=== PATIENT | female | born 2000 | race Two or more races ===

== ENCOUNTER 2023-04-05 16:32 | Emergency (ER) | payer BC, OTHER ==
[2023-04-05] MEDS ORDERED: Sodium Chloride 0.9% 10 ML Syringe FLUSH PRN (16:40)
[2023-04-05] MEDS ORDERED: Sodium Chloride 0.9% 1,000 ML IV SCH (16:45)
[2023-04-05 16:51] LABS: BASOPHILS PERCENT AUTO 0.4 % (0.0-1.0); EOSINOPHILS ABSOLUTE AUTO 0.4 K/mm3 (0.0-0.4); EOSINOPHILS PERCENT AUTO 4.7 % (0.0-6.0); HEMATOCRIT 37.8 % (37.0-47.0); IMMATURE GRAN ABSOLUTE AUTO 0.02 K/mm3 (0.00-0.05); IMMATURE GRAN PERCENT AUTO 0.2 % (0.0-0.4); LYMPHOCYTES PERCENT AUTO 35.1 % (24.0-44.0); MEAN CORPUSCULAR HEMOGLOBIN 31.3 pg (28.0-32.0); MEAN CORPUSCULAR HGB CONC 34.4 g/dl (32.0-36.0); MEAN CORPUSCULAR VOLUME 90.9 fl (83.0-99.0); MEAN PLATELET VOLUME 9.8 fl (9.4-12.3); MONOCYTES ABSOLUTE AUTO 0.6 K/mm3 (0.0-0.8); MONOCYTES PERCENT AUTO 6.6 % (0.0-8.0); NEUTROPHILS ABSOLUTE AUTO 4.5 K/mm3 (1.8-7.7); PLATELET COUNT,PLT 301 K/mm3 (150-400); RED BLOOD CELL COUNT 4.16 M/mm3 (4.10-5.30); WHITE BLOOD CELL COUNT,WBC 8.44 K/mm3 (3.9-11.3)
[2023-04-05] MEDS ORDERED: HYDROmorphone 0.5 MG/0.5 ML Syringe IVPUSH ONE ×2 (16:51→18:42)
[2023-04-05 17:14] LABS: A/G RATIO 1.1 (1-2); ANION GAP 15.6 (5-15); BILIRUBIN TOTAL 0.3 mg/dL (0.2-1.0); BUN/CREATININE RATIO 17.5 (14-18); CALCIUM 8.9 mg/dL (8.5-10.1); CREATININE 0.8 mg/dL (0.55-1.02); EST CRCL DRUG DOSING (CG) 80.59 mL/min; POTASSIUM,K 3.6 mEq/L (3.5-5.1); PROTEIN TOTAL,TP 7.8 g/dl (6.4-8.2)
== END 2023-04-05 19:00 ==
LOC: EDUNIT# → EDBD → JD.ED 16:32
DX: S52.021A Displaced fracture of olecranon process without intraarticular extension of right ulna, initial encounter for closed fracture (principal); S06.6X0A Traumatic subarachnoid hemorrhage without loss of consciousness, initial encounter; S00.03XA Contusion of scalp, initial encounter; V13.9XXA Unspecified pedal cyclist injured in collision with car, pick-up truck or van in traffic accident, initial encounter
CPT/HCPCS: 29105; 36415; 70450; 71045; 72125; 73080; 80053; 80307; 83690; 84703; 85025; 96374; 96376; 99285; J1170; J3490; J7030

== ENCOUNTER 2024-09-10 07:29 | Inpatient (IN) | payer SELFPAY ==
[2024-09-10] MEDS ORDERED: Lidocaine 1% 50 ML MDV INJECT PRN (09:07)
[2024-09-10] MEDS ORDERED: Nalbuphine 10 MG/1 ML Vial IVPUSH PRN (09:07)
[2024-09-10] MEDS ORDERED: Ondansetron 4 MG/2 ML SDV IVPUSH PRN (09:07)
[2024-09-10] MEDS ORDERED: Oxytocin/0.9 % Sodium Chloride 30 UNIT/500 ML BAG IV SCH (09:15)
[2024-09-10 09:27] LABS: BASOPHILS PERCENT AUTO 0.3 % (0.0-1.0); EOSINOPHILS ABSOLUTE AUTO 0.1 K/mm3 (0.0-0.4); EOSINOPHILS PERCENT AUTO 1.4 % (0.0-6.0); HEMATOCRIT 32.5 % (37.0-47.0); HEMOGLOBIN 10.6 gm/dl (12.0-16.0); IMMATURE GRAN ABSOLUTE AUTO 0.02 K/mm3 (0.00-0.05); IMMATURE GRAN PERCENT AUTO 0.3 % (0.0-0.4); LYMPHOCYTES ABSOLUTE AUTO 1.7 K/mm3 (1.0-4.8); LYMPHOCYTES PERCENT AUTO 21.2 % (24.0-44.0); MEAN CORPUSCULAR HEMOGLOBIN 29.3 pg (28.0-32.0); MEAN CORPUSCULAR HGB CONC 32.6 g/dl (32.0-36.0); MEAN CORPUSCULAR VOLUME 89.8 fl (83.0-99.0); MEAN PLATELET VOLUME 9.4 fl (9.4-12.3); MONOCYTES ABSOLUTE AUTO 0.5 K/mm3 (0.0-0.8); MONOCYTES PERCENT AUTO 6.7 % (0.0-8.0); NEUTROPHILS ABSOLUTE AUTO 5.6 K/mm3 (1.8-7.7); NEUTROPHILS PERCENT AUTO 70.1 % (41.0-71.0); PLATELET COUNT,PLT 275 K/mm3 (150-400); RED BLOOD CELL COUNT 3.62 M/mm3 (4.10-5.30); WHITE BLOOD CELL COUNT,WBC 7.96 K/mm3 (3.9-11.3)
[2024-09-10] MEDS ORDERED: diphenhydrAMINE 50 MG/ML SDV IVPUSH PRN (09:47)
[2024-09-10] MEDS ORDERED: ePHEDrine 50 MG/ML SDV IVPUSH PRN (09:47)
[2024-09-10] MEDS: Lactated Ringers 1,000 ML IV SCH (10:00)
[2024-09-10] MEDS: Penicillin G Potassium 5 MILLUNITS in Sodium Chloride 0.9% 100 ML IV ONE (10:03)
[2024-09-10] MEDS: Bupivacaine/fentaNYL/NS 100 ML Bag EPIDUR PRN (10:29)
[2024-09-10] MEDS: Penicillin G Potassium 2.5 MILLUNITS in Sodium Chloride 0.9% 100 ML IV SCH (13:56)
[2024-09-10] MEDS: Oxytocin/0.9 % Sodium Chloride 30 UNIT/500 ML BAG IV SCH (16:30)
[2024-09-10] MEDS: Acetaminophen 325 MG Tab PO ONE (22:25)
[2024-09-11] MEDS: Sodium Chloride 0.9% 10 ML Syringe FLUSH SCH (03:18)
[2024-09-11] MEDS ORDERED: ceFAZolin 2 GM in Sodium Chloride 0.9% 50 ML IV ONE (04:55)
[2024-09-11] MEDS ORDERED: Lactated Ringers 1,000 ML IV SCH (05:00)
[2024-09-11] MEDS: Citric Acid/Sodium Citrate Solution 30 ML Cup PO ONE (05:03)
[2024-09-11] MEDS: Metoclopramide 10 MG/2 ML SDV IVPUSH ONE (05:03)
[2024-09-11] MEDS: Azithromycin 500 MG in Sodium Chloride 0.9% 250 ML IV ONE (05:03)
[2024-09-11] MEDS ORDERED: Bupivacaine 0.5% 30 ML SDV ONE (05:14)
[2024-09-11] MEDS ORDERED: ceFAZolin 2 GM Vial ONE (05:22)
[2024-09-11] MEDS ORDERED: Lactated Ringers 1,000 ML ONE (05:26)
[2024-09-11] MEDS ORDERED: Morphine PF 10 MG/10 ML SDV ONE (05:27)
[2024-09-11] MEDS ORDERED: Ketamine 500 mg/10 ML MDV ONE (05:31)
[2024-09-11] MEDS ORDERED: Esmolol 100 MG/10 ML SDV ONE (05:46)
[2024-09-11] MEDS ORDERED: Tranexamic Acid 1,000 MG/10 ML Vial ONE (05:54)
[2024-09-11] MEDS ORDERED: Ondansetron 4 MG/2 ML SDV ONE (06:19)
[2024-09-11] MEDS ORDERED: Ketorolac 30 MG/ML SDV ONE (06:26)
[2024-09-11] MEDS ORDERED: ePHEDrine 50 MG/ML SDV IVPUSH PRN (06:41)
[2024-09-11] MEDS ORDERED: Naloxone 0.4 MG/ML SDV IVPUSH PRN (06:41)
[2024-09-11] MEDS ORDERED: Sennosides 8.6 MG Tab PO PRN (06:41)
[2024-09-11] MEDS ORDERED: diphenhydrAMINE 50 MG/ML SDV IVPUSH PRN ×2 (06:41→06:55)
[2024-09-11 06:52] LABS: HEMATOCRIT 30.1 % (37.0-47.0); HEMOGLOBIN 9.7 gm/dl (12.0-16.0); MEAN CORPUSCULAR HGB CONC 32.2 g/dl (32.0-36.0); MEAN CORPUSCULAR VOLUME 89.9 fl (83.0-99.0); MEAN PLATELET VOLUME 9.8 fl (9.4-12.3); PLATELET COUNT,PLT 228 K/mm3 (150-400); RED BLOOD CELL COUNT 3.35 M/mm3 (4.10-5.30); WHITE BLOOD CELL COUNT,WBC 14.05 K/mm3 (3.9-11.3)
[2024-09-11] MEDS ORDERED: Meperidine 50 MG/ML Vial IVPUSH PRN (06:55)
[2024-09-11] MEDS ORDERED: fentaNYL 100 MCG/2 ML SDV IVPUSH PRN (06:55)
[2024-09-11] MEDS ORDERED: Ondansetron 4 MG/2 ML SDV IVPUSH PRN (06:55)
[2024-09-11 07:15] LABS: INR 0.99; PROTHROMBIN TIME 10.5 SECONDS (9.7-12.0)
[2024-09-11 07:17] LABS: PTT,PARTIAL THROMBOPLSTIN TIME 22.2 SECONDS (21.7-31.4)
[2024-09-11] MEDS: Dextrose 5%-Lactated Ringers 1,000 ML IV SCH (07:44)
[2024-09-11] MEDS: Docusate Sodium 100 MG Cap PO SCH (08:14)
[2024-09-11] MEDS: Acetaminophen 325 MG Tab PO SCH (08:14)
[2024-09-11] MEDS: Ibuprofen 800 MG Tab PO SCH (08:17)
[2024-09-11] MEDS: ceFAZolin 2 GM Vial IV ONE (23:40)
[2024-09-12 06:46] LABS: HEMATOCRIT 26.7 % (37.0-47.0); HEMOGLOBIN 8.5 gm/dl (12.0-16.0); MEAN CORPUSCULAR HEMOGLOBIN 28.9 pg (28.0-32.0); MEAN CORPUSCULAR HGB CONC 31.8 g/dl (32.0-36.0); MEAN CORPUSCULAR VOLUME 90.8 fl (83.0-99.0); MEAN PLATELET VOLUME 9.7 fl (9.4-12.3); PLATELET COUNT,PLT 272 K/mm3 (150-400); RED BLOOD CELL COUNT 2.94 M/mm3 (4.10-5.30); WHITE BLOOD CELL COUNT,WBC 10.95 K/mm3 (3.9-11.3)
[2024-09-12] MEDS: oxyCODONE 5 MG Tab PO PRN (20:19)
[2024-09-13] MEDS ORDERED: Measles, Mumps & Rubella Vaccine 0.5 ML SDV SUBCUT ONE (10:00)
== END 2024-09-13 10:50 | disposition home or self-care (01) | DRG 787 ==
LOC: JD.OBCHECK 07:29 → JD.OB 07:30 → JD.OBCHECK 09:07 → JD.OB 09:08 → OBSVTOIN 09-11 05:42
PROVIDERS: ADMIT Obstetrics & Gynecology; ATTEND Obstetrics & Gynecology
PROC: 3E0234Z Introduction of Serum, Toxoid and Vaccine into Muscle, Percutaneous Approach (ICD-10-PCS; principal; 2024-09-11 06:00)
PROC: 10D00Z1 Extraction of Products of Conception, Low, Open Approach (ICD-10-PCS; principal; 2024-09-11 06:00)
DX: O99.824 Streptococcus B carrier state complicating childbirth (principal); D62 Acute posthemorrhagic anemia; Z23 Encounter for immunization; Z98.891 History of uterine scar from previous surgery; Z3A.39 39 weeks gestation of pregnancy; O99.02 Anemia complicating childbirth; Z37.0 Single live birth
CPT/HCPCS: 01967; 01968; 36415; 51702; 59025; 85025; 85027; 85384; 85610; 85730; 86592; 86850; 86900; 86901; 94762; A9270-GY; J0456; J0665; J0690; J1885; J2274; J2405; J2540; J2765; J3490; J7120; J7121; J7999